=== PATIENT | male | born 1960 | race Caucasian/White ===

== ENCOUNTER 2017-06-17 15:48 | Emergency (ER) | payer BC ==
[~2017-06-17] VITALS: Ht 167.6 cm; Wt 99.3 kg
[2017-06-17] MEDS ORDERED: IV NORMAL SALINE 1,000ML 1,000 ML IV SCH (16:02)
--- NOTE | 2017-06-17 16:22 | PHYS DOC ---
General Chief Complaint: FLANK PAIN Stated Complaint: LEFT SIDE PAIN, VOMITTING, POSS HYPOGL Time Seen by MD: 15:55 Source: patient Exam Limitations: no limitations Problems: History of Present Illness Initial Comments Patient is a 56-year-old male who comes to the ED complaining of abdominal flank pain. Patient states that since around 10 AM today he's had left-sided flank pain which was intermittent initially however now states that it is constant. It is described as sharp and achy 10 out of 10 no exacerbating or relieving factors. He says the pain has been so great he's had several episodes of emesis and has had some decreased urination but has not noticed any blood. He has no personal history of diverticulitis or kidney stones and denies any recent travel or bad food exposure. No fever chills, he's had cold sweats intermittently with his nausea and vomiting. He is in obvious distress during my interview and can hardly answer me complaining that the pain is so severe. He does deny chest pain or trouble breathing. ED VSS Timing/Duration: 4-6 hours Severity: severe Modifying Factors: improves with other Associated Symptoms: nausea/vomiting, other Allergies: Coded Allergies: niacin (Verified Allergy, Unknown, 06/17/17) Past Medical History Medical History: other (DM) Surgical History: other (bilateral herniorrhaphy) Social History Smoker: non-smoker Alcohol: none Drugs: none Review of Systems Constitutional: denies chills, denies fever, denies malaise Respiratory: denies cough, denies shortness of breath Cardiovascular: denies chest pain, denies palpitations, denies syncope Gastrointestinal: see HPI Genitourinary: see HPI Musculoskeletal: see HPI Psychiatric/Neurological: denies headache, denies numbness, denies paresthesia Physical Exam General Appearance: WD/WN, severe distress Eyes: bilateral eye normal inspection, bilateral eye PERRL, bilateral eye EOMI Ear, Nose, Throat: hearing grossly normal, normal ENT inspection Neck: non-tender, supple Respiratory: normal breath sounds, no respiratory distress Cardiovascular: normal peripheral pulses, regular rate, rhythm Gastrointestinal: non tender, soft Back: no CVA tenderness, no vertebral tenderness Extremities: non-tender, normal inspection Neurologic/Psychiatric: pediatric allergist II-XII nml as tested, no motor/sensory deficits, alert, oriented x 3 Skin: normal color, warm/dry Orders, Labs, Meds WBC 11.4, BUN 22, Cr 1.4, UA +blood PATIENT: BONIFACIO OBANDO ACCOUNT: [id number] : 1960 LOCATION: ER AGE: 56 SEX: M EXAM STATUS: REG ER ORD. PHYSICIAN: VAIBHAV DE SANTIAGO DO REASON: L flank pain, n/v PROCEDURE: CT ABDOMEN PELVIS WO CONTRAST CT abdomen/pelvis Indication: Abdominal pain, left flank pain, nausea and vomiting Technique: CT abdomen/pelvis without IV contrast with multiplanar reformats. Comparison: None Findings: Heart is normal in size. No pericardial or pleural effusion. Diffuse attenuation of the liver noted suggesting hepatic steatosis. Spleen is mildly enlarged measuring 15 cm. Gallstone is noted. No pericholecystic fluid or gallbladder wall thickening. Noncontrast appearance of the pancreas, adrenals within normal limits. No renal stones. Mild dilation of the left pelvicalyceal system noted. Punctate calcific density seen in the proximal left ureter too small to represent obstructing stone. There is mild perinephric fat stranding noted on the left. No right hydronephrosis. No retroperitoneal or pelvic adenopathy. No bowel obstruction. Normal appendix. Shotty mesenteric lymph nodes noted, nonspecific likely reactive. Bladder show no focal lesion. Prostate and seminal vesicles are within normal limits. No free pelvic fluid. Relatively circumscribed soft tissue densities are seen in the pelvis anterolateral to the bladder. No suspicious bony lesions. Impression: 1. Left pelvocaliectasis with perinephric inflammatory changes with punctate calcific density in the proximal ureter too small to represent obstructing stone. Findings may represent recently passed stone. Clinically correlate with urinalysis. 2. Bilateral soft tissue densities in the inguinal region anterolateral to the bladder. This may represent hernia plugs. Correlate with history of hernia surgery. 3. Mild splenomegaly, nonspecific. 4. Hepatic steatosis. Cholelithiasis without acute cholecystitis. PQRS Compliance Statement: One or more of the following individualized dose reduction techniques were utilized for this examination: 1. Automated exposure control 2. Adjustment of the mA and/or kV according to patient size 3. Use of iterative reconstruction technique DICTATED AND SIGNED BY: KERI CAMARILLO DATE: 06/17/17 8527 CC: LAURI RODRÍGUEZ MD; VAIBHAV DE SANTIAGO DO ~ 1853: Pt has been resting comfortably no pain since arrival and dilaudid 0.5mg IV. Labs unremarkable, it appears pt has passed a stone. He has been unable to give a urine specimen until approximately 1800, results are pending. Pt will be discharged home when urine results are back, discharge instructions/ prescriptions are left with RN. I have talked with pt, his questions answered, and if any questions come up regarding urine studies will to defer to Dr Nava who took over ED staffing at 1800. Departure Time of Disposition: 18:56 Disposition: 01 HOME, SELF-CARE Diagnosis: Passed kidney stone, UTI Condition: IMPROVED Patient Instructions: Kidney Stones, [id number] Additional Instructions: No driving or operating machinery while under influence of sedative medications. Aggressive hydration with gatorade, water. OTC tylenol as needed. Rx: bactrim ds, zofran odt, pyridium Follow up with your doctor in 2-3 days for recheck and to discuss urology outpatient referral. Return to ED with new or changing symptoms. VAIBHAV DE SANTIAGO DO Jun 17, 2017 16:22
[2017-06-17] MEDS ORDERED: HYDROmorphone PF 1 MG/ML DISP.SYRIN IV/SQ PRN (16:30)
[2017-06-17] MEDS ORDERED: ONDANSETRON PF 4 MG/2 ML VIAL. IV ONE (16:30)
[2017-06-17] MEDS ORDERED: KETOROLAC 30 MG/ML VIAL. IV ONE (16:30)
[2017-06-17 16:35] LABS: BASO # 0.1 x10^3/uL (0.0-0.2); BASO % 1 % (0-3); EOS % 0 % (0-3); HEMATOCRIT 42.2 % (39.0-53.0); HEMOGLOBIN 14.6 g/dL (13.0-17.5); LYMPH # 0.8 x10^3/uL (1.0-4.8); LYMPH % 7 % (24-48); MEAN CORPUSCULAR HEMOGLOBIN 29 pg (25-35); MEAN CORPUSCULAR HGB CONC 35 g/dL (31-37); MEAN CORPUSCULAR VOLUME 85 fL (79-100); MONO # 0.6 x10^3/uL (0.0-1.1); MONO % 6 % (0-9); NEUT # 9.8 x10^3uL (1.8-7.7); NEUT % 86 % (31-73); PLATELET COUNT 287 x10^3/uL (140-400); RED BLOOD COUNT 4.99 x10^6/uL (4.30-5.70); RED CELL DISTRIBUTION WIDTH 13.6 % (11.5-14.5); WHITE BLOOD COUNT 11.4 x10^3/uL (4.0-11.0)
[2017-06-17] MEDS ORDERED: cefTRIAXone SODIUM 1 GM VIAL IV ONE (16:37)
[2017-06-17] MEDS ORDERED: IV NORMAL SALINE 50ML 50 ML ONE (16:37)
[2017-06-17 16:50] LABS: ALBUMIN 3.9 g/dL (3.4-5.0); CALCIUM 9.5 mg/dL (8.5-10.1); CREATININE 1.4 mg/dL (0.7-1.3); DIRECT BILIRUBIN 0.2 mg/dL (0.0-0.2); GFR 52.6; POTASSIUM 4.3 mmol/L (3.5-5.1); TOTAL BILIRUBIN 0.7 mg/dL (0.2-1.0); TOTAL PROTEIN 7.5 g/dL (6.4-8.2)
--- NOTE | 2017-06-17 17:03 | RAD ---
CT abdomen/pelvis Indication: Abdominal pain, left flank pain, nausea and vomiting Technique: CT abdomen/pelvis without IV contrast with multiplanar reformats. Comparison: None Findings: Heart is normal in size. No pericardial or pleural effusion. Diffuse attenuation of the liver noted suggesting hepatic steatosis. Spleen is mildly enlarged measuring 15 cm. Gallstone is noted. No pericholecystic fluid or gallbladder wall thickening. Noncontrast appearance of the pancreas, adrenals within normal limits. No renal stones. Mild dilation of the left pelvicalyceal system noted. Punctate calcific density seen in the proximal left ureter too small to represent obstructing stone. There is mild perinephric fat stranding noted on the left. No right hydronephrosis. No retroperitoneal or pelvic adenopathy. No bowel obstruction. Normal appendix. Shotty mesenteric lymph nodes noted, nonspecific likely reactive. Bladder show no focal lesion. Prostate and seminal vesicles are within normal limits. No free pelvic fluid. Relatively circumscribed soft tissue densities are seen in the pelvis anterolateral to the bladder. No suspicious bony lesions. Impression: 1. Left pelvocaliectasis with perinephric inflammatory changes with punctate calcific density in the proximal ureter too small to represent obstructing stone. Findings may represent recently passed stone. Clinically correlate with urinalysis. 2. Bilateral soft tissue densities in the inguinal region anterolateral to the bladder. This may represent hernia plugs. Correlate with history of hernia surgery. 3. Mild splenomegaly, nonspecific. 4. Hepatic steatosis. Cholelithiasis without acute cholecystitis. PQRS Compliance Statement: One or more of the following individualized dose reduction techniques were utilized for this examination: 1. Automated exposure control 2. Adjustment of the mA and/or kV according to patient size 3. Use of iterative reconstruction technique
[2017-06-17 18:10] VITALS: BP 107/61
[2017-06-17] MEDS ORDERED: ONDA4TAB10 PO (18:52)
[2017-06-17] MEDS ORDERED: PHEN100T82 PO (18:52)
[2017-06-17] MEDS ORDERED: SULF1TAB24 PO (18:52)
[2017-06-17 19:26] LABS: BILIRUBIN,URINE NEG (NEG); CLARITY,URINE CLEAR; COLOR,URINE YELLOW; GLUCOSE,URINE >=1000 mg/dL (NEG); NITRITE,URINE NEG (NEG); UROBILINOGEN,URINE 1 mg/dL (0.2 mg/dL)
[2017-06-17 19:27] LABS: BACTERIA,URINE 0 /HPF (0-FEW); SQUAMOUS EPITHELIAL CELL,UR FEW /LPF
== END 2017-06-17 19:37 | disposition home or self-care (01) ==
LOC: ER 15:48
DX: N39.0 Urinary tract infection, site not specified (principal); Z88.1 Allergy status to other antibiotic agents
CPT/HCPCS: 36415; 74176; 80048; 80076; 81001; 83690; 85025; 96365; 96375; 99285; J0696; J1170; J1885; J2405; J7030

== ENCOUNTER 2017-07-16 01:14 | Emergency (ER) | payer BC ==
[~2017-07-16] VITALS: Ht 167.6 cm; Wt 93.4 kg
[~2017-07-16 01:14] MED LIST: ONDA4TAB10 PO; PHEN100T82 PO; SULF1TAB24 PO
--- NOTE | 2017-07-16 01:48 | PHYS DOC ---
Past History Past Medical History: Diabetes, Gallstones, High Cholesterol, Urolithias Past Surgical History: Other Alcohol Use: None Drug Use: None Adult General Chief Complaint Chief Complaint: ABDOMINAL PAIN HPI HPI 56-year-old male with a history of gallstones diagnosed a month ago never treated now presents to the emergency department complaining of severe right upper quadrant abdominal pain under his rib margin worse with deep inspiration. Patient was fine at dinnertime. About an hour and a half ago here experienced onset of right upper quadrant pain. His causing him to have nausea and vomiting and pain as described. No fevers chills sweats or shaking chills. Normal bowel and bladder habits. Patient states 1 month ago he was seen and diagnosed with a presumed kidney stone which was thought to have passed by the time it was imaged. His pain at that time was left flank and left-sided. As an incidental finding of gallstones but patient had no right upper quadrant pain or evidence of acute cholecystitis at that time. He has not followed up with the surgeon Review of Systems Review of Systems Constitutional: Denies fever or chills [] Eyes: Denies change in visual acuity, redness, or eye pain [] HENT: Denies nasal congestion or sore throat [] Respiratory: Denies cough or shortness of breath [] Cardiovascular: No additional information not addressed in HPI [] GI: Denies abdominal pain, nausea, vomiting, bloody stools or diarrhea [] : Denies dysuria or hematuria [] Musculoskeletal: Denies back pain or joint pain [] Integument: Denies rash or skin lesions [] Neurologic: Denies headache, focal weakness or sensory changes [] Endocrine: Denies polyuria or polydipsia [] Current Medications Current Medications Current Medications Medications (Trade) Dose Ordered Sig/[facility] Start Time Stop Time Status Last Admin Dose Admin Ketorolac Tromethamine (Toradol) 30 mg 1X ONCE 07/16/17 02:00 07/16/17 02:01 07/16/17 01:36 30 MG Lorazepam (Ativan) 2 mg 1X ONCE 07/16/17 02:00 07/16/17 02:01 07/16/17 01:36 1 MG Sodium Chloride 1,000 ml @ 1,000 mls/hr 1X ONCE 07/16/17 02:00 07/16/17 02:59 07/16/17 01:36 1,000 MLS/HR Allergies Allergies Allergies Coded Allergies Type Severity Reaction Last Updated Verified niacin Allergy Unknown 06/17/17 Yes Physical Exam Physical Exam Ill appearing 56-year-old male in mild distress complaining of right upper quadrant pain. He does have active nausea with intermittent vomiting. No bloody emesis .clear lungs regular rate and rhythm. No CVA tenderness. Positive Alicia' s with significant right upper quadrant pain and tenderness mild epigastric tenderness as well. Lower abdomen and pelvis benign. Normal extremities and nonfocal neuro Constitutional: Well developed, well nourished, no acute distress, non-toxic appearance. [] HENT: Normocephalic, atraumatic, bilateral external ears normal, oropharynx moist, no oral exudates, nose normal. [] Eyes: PERRLA, EOMI, conjunctiva normal, no discharge. [] Neck: Normal range of motion, no tenderness, supple, no stridor. [] Cardiovascular:Heart rate regular rhythm, no murmur [] Lungs & Thorax: Bilateral breath sounds clear to auscultation [] Abdomen: As above Skin: Warm, dry, no erythema, no rash. [] Back: No tenderness, no CVA tenderness. [] Extremities: No tenderness, no cyanosis, no clubbing, ROM intact, no edema. [] Neurologic: Alert and oriented X 3, normal motor function, normal sensory function, no focal deficits noted. [] Psychologic: Affect normal, judgement normal, mood normal. [] EKG EKG [] Radiology/Procedures Radiology/Procedures Ultrasound right upper quadrant[] Course & Med Decision Making Course & Med Decision Making Pertinent Labs and Imaging studies reviewed. (See chart for details) Signs and symptoms consistent with biliary colic and suspected acute cholecystitis in a patient with known history of cholelithiasis. Afebrile and vital signs unremarkable. Patient hydrated. Ativan administered for clearly contributory component of anxiety. Toradol Zofran given as well. Full workup pending including right upper quadrant ultrasound and labs. We'll follow clinically correlate with radiographic findings. [] Dragon Disclaimer Dragon Disclaimer This chart was dictated in whole or in part using Voice Recognition software in a busy, high-work load, and often noisy Emergency Department environment. It may contain unintended and wholly unrecognized errors or omissions. Departure Departure: Impression: Primary Impression: Cholecystitis Additional Impressions: Abdominal pain Vomiting Cholelithiasis Pancreatitis Disposition: ADMITTED INPATIENT Condition: STABLE Referrals: LAURI RODRÍGUEZ MD (PCP) Problem Qualifiers WILLA ASTORGA MD Jul 16, 2017 01:48
[2017-07-16 01:55] LABS: BASO # 0.1 x10^3/uL (0.0-0.2); BASO % 1 % (0-3); EOS # 0.1 x10^3/uL (0.0-0.7); EOS % 1 % (0-3); HEMATOCRIT 44.7 % (39.0-53.0); LYMPH # 2.2 x10^3/uL (1.0-4.8); LYMPH % 20 % (24-48); MEAN CORPUSCULAR HEMOGLOBIN 29 pg (25-35); MEAN CORPUSCULAR HGB CONC 34 g/dL (31-37); MEAN CORPUSCULAR VOLUME 86 fL (79-100); MONO # 0.7 x10^3/uL (0.0-1.1); MONO % 6 % (0-9); NEUT # 7.9 x10^3uL (1.8-7.7); NEUT % 72 % (31-73); PLATELET COUNT 304 x10^3/uL (140-400); RED BLOOD COUNT 5.21 x10^6/uL (4.30-5.70); RED CELL DISTRIBUTION WIDTH 14.1 % (11.5-14.5)
[2017-07-16] MEDS ORDERED: LORazepam 2 MG/ML VIAL IV ONE (02:00)
[2017-07-16] MEDS ORDERED: KETOROLAC 30 MG/ML VIAL. IV ONE (02:00)
[2017-07-16] MEDS ORDERED: IV NORMAL SALINE 1,000ML 1,000 ML IV ONE (02:00)
[2017-07-16 02:10] LABS: ALBUMIN 4.1 g/dL (3.4-5.0); ALBUMIN/GLOBULIN RATIO 1.1 (1.0-1.7); CALCIUM 9.6 mg/dL (8.5-10.1); CREATININE 1.2 mg/dL (0.7-1.3); GFR 62.9; POTASSIUM 3.8 mmol/L (3.5-5.1); TOTAL BILIRUBIN 0.6 mg/dL (0.2-1.0); TOTAL PROTEIN 7.7 g/dL (6.4-8.2)
--- NOTE | 2017-07-16 03:15 | RAD ---
EXAM: ABDOMEN LTD HISTORY: severe ruq pain, n/v x 8 hrs COMPARISON: None. TECHNIQUE: Transverse and longitudinal sonography of the right upper quadrant is performed. FINDINGS: The pancreas is mostly obscured. The main portal vein demonstrates normal directional flow. Liver demonstrates diffuse increased echogenicity suggestive of steatosis. Liver measures 17.9 cm. No focal liver lesion is seen within the provided images. The right kidney measures 12.0 x 5.3 x 6.2 cm, without evidence of hydronephrosis. Some sludge and/or tiny calculi are suggested posteriorly within the gallbladder, which is distended. No calcified gallstones are seen. No gallbladder wall thickening or pericholecystic fluid is seen. A positive sonographic Alicia's sign is present. The common bile duct measures 4 mm in diameter. No free fluid seen within the provided images. IMPRESSION: 1. Cholelithiasis with positive sonographic Alicia's sign, suggests acute cholecystitis. 2. Hepatic steatosis. Electronically signed by: Lexie Schmidt MD (07/16/2017 3:12 AM) [id number]
[2017-07-16 03:41] LABS: BACTERIA,URINE 0 /HPF (0-FEW); BILIRUBIN,URINE NEG (NEG); CLARITY,URINE CLEAR; COLOR,URINE YELLOW; GLUCOSE,URINE >=1000 mg/dL (NEG); NITRITE,URINE NEG (NEG); RBC,URINE 0 /HPF (0-2); SQUAMOUS EPITHELIAL CELL,UR FEW /LPF; UROBILINOGEN,URINE 0.2 mg/dL (0.2 mg/dL); WBC,URINE OCC /HPF (0-4)
[2017-07-16 05:42] VITALS: BP 108/62
== END 2017-07-16 05:42 | disposition other institution (70) ==
LOC: ER 01:14
DX: K80.10 Calculus of gallbladder with chronic cholecystitis without obstruction (principal); K85.90 Acute pancreatitis without necrosis or infection, unspecified; E78.00 Pure hypercholesterolemia, unspecified; E11.9 Type 2 diabetes mellitus without complications; Z88.1 Allergy status to other antibiotic agents
CPT/HCPCS: 36415; 76705; 80053; 81001; 83690; 85025; 96361; 96374; 96375; 99285; J1885; J2060; J7030